=== PATIENT | female | born 1945 | race Caucasian/White ===

== ENCOUNTER 2022-06-15 14:01 | Emergency (ER) | payer MEDICARE ==
[~2022-06-15] VITALS: Ht 170.2 cm; Wt 81.8 kg
[2022-06-15 14:17] VITALS: BP 154/73
[2022-06-15] MEDS ORDERED: BUDE180A INH (15:05)
[2022-06-15] MEDS ORDERED: ALBU6.7H9 INH (15:05)
[2022-06-15] MEDS ORDERED: DEXA6TAB PO (15:05)
== END 2022-06-15 15:14 | disposition home or self-care (01) ==
LOC: ER 14:03
DX: U07.1 COVID-19 (principal); J04.0 Acute laryngitis; Z88.2 Allergy status to sulfonamides
CPT/HCPCS: 99283